=== PATIENT | female | born 1980 | race Caucasian/White ===

== ENCOUNTER → 2017-05-08 | Outpatient (CLI) | payer OTHER ==
[2017-05-08 15:44] LABS: A TYPE INFLUENZA AG NEGATIVE (NEGATIVE); B INFLUENZA AG NEGATIVE (NEGATIVE)
== END ==
LOC: OD 14:22
PROVIDERS: ATTEND Obstetrics & Gynecology
DX: R09.82 Postnasal drip (principal); R07.0 Pain in throat
CPT/HCPCS: 87070; 87804; 87880